=== PATIENT | female | born 1975 | race Two or more races ===

== ENCOUNTER 2024-10-09 05:25 | Day surgery (SDC) | payer OTHER ==
[2024-10-01 10:09] VITALS: BP 138/89
[2024-10-01 10:22] LABS: HEMATOCRIT 37.6 % (36.0-45.00); HEMOGLOBIN 12.6 g/dL (12.0-15.00); MEAN CELL VOLUME 79.9 fL (80.00-100.00); MEAN CORPUSCULAR HEMOGLOBIN 26.8 pg (27.00-32.0); MEAN CORPUSCULAR HGB CONC 33.5 g/dl (32.0-36.0); PLATELET COUNT 310 K/uL (150-450); RED BLOOD COUNT 4.71 M/uL (4.00-6.00); RED CELL DISTRIBUTION WIDTH 13.3 % (11.5-14.5)
[2024-10-01 10:40] LABS: INR 1.04; PARTIAL THROMBOPLASTIN TIME 28.8 SECONDS (22.0-34.0); PROTHROMBIN TIME 11.3 SECONDS (9.0-11.5)
[2024-10-01 11:34] LABS: ALBUMIN 4.2 gm/dL (3.4-5.0); BILIRUBIN TOTAL 0.54 mg/dL (0.3-1.2); CALCIUM 9.3 mg/dL (8.5-10.1); CREATININE SERUM 0.67 mg/dL (0.55-1.02); GFR 92.79; GLOBULINA 3.5 G/DL (2.4-3.5); POTASSIUM 3.7 mEq/L (3.5-5.1); TOTAL PROTEIN 7.7 gm/dL (6.4-8.2)
[~2024-10-09] VITALS: Ht 170.2 cm; Wt 72.6 kg
[~2024-10-09 05:25] MED LIST: CARTIA XT240 MG PO
[2024-10-09] MEDS ORDERED: BUPIVACAINE HCL 30 ML VIAL IJ SCH (08:15)
[2024-10-09] MEDS ORDERED: DIBUCAINE 15 GM OINT..GM. TUBE RECTAL SCH (08:15)
[2024-10-09] MEDS ORDERED: CEFTRIAXONE SODIUM 2,000 MG VIAL IV SCH (08:15)
[2024-10-09] MEDS ORDERED: HEMOSTATIC MATRIX 1 KIT KIT TOP SCH (08:15)
[2024-10-09] MEDS ORDERED: METRONIDAZOLE/SODIUM CHLORIDE 500 MG/100 ML PIGGYBACK IV SCH (08:15)
[2024-10-09] MEDS ORDERED: BUPIVACAINE LIPOSOME/PF 266 MG/20 ML VIAL IJ SCH (08:15)
[2024-10-09] MEDS ORDERED: CHLORHEXIDINE GLUCONATE 120 ML BOTTLE TOP SCH (08:15)
[2024-10-09] MEDS ORDERED: CELECOXIB200 MG PO (09:46)
[2024-10-09] MEDS ORDERED: INTESTINEX680 M1 PO (09:46)
[2024-10-09] MEDS ORDERED: NEURONTIN300 MG PO (09:46)
[2024-10-09] MEDS ORDERED: PERCOCET 5-3251 EACH PO (09:47)
== END 2024-10-09 13:10 | disposition home or self-care (01) ==
LOC: CIR.AMB 05:25
PROVIDERS: ATTEND Surgery
DX: K64.2 Third degree hemorrhoids (principal); K64.4 Residual hemorrhoidal skin tags; K62.5 Hemorrhage of anus and rectum; Z91.013 Allergy to seafood; I10 Essential (primary) hypertension; J45.909 Unspecified asthma, uncomplicated; J32.9 Chronic sinusitis, unspecified; K21.9 Gastro-esophageal reflux disease without esophagitis; H52.209 Unspecified astigmatism, unspecified eye; H52.10 Myopia, unspecified eye